=== PATIENT | female | born 1970 | race Hispanic/Latino ===

== ENCOUNTER 2021-06-03 10:37 | Outpatient (CLI) | payer OTHER | END 2021-06-03 10:38 | disposition home or self-care (01) | LOC: CSHMAMMO 10:37 | PROVIDERS: ATTEND Advanced Practice Midwife | DX: Z12.31 Encounter for screening mammogram for malignant neoplasm of breast (principal) | CPT/HCPCS: 77063; 77067 ==

== ENCOUNTER 2024-01-12 07:51 | Outpatient (CLI) | payer OTHER | END 2024-01-12 07:52 | disposition home or self-care (01) | LOC: CSHMAMMO 07:51 | PROVIDERS: ATTEND Family Medicine | DX: Z78.0 Asymptomatic menopausal state (principal); Z90.710 Acquired absence of both cervix and uterus | CPT/HCPCS: 77080 ==